=== PATIENT | female | born 1990 | race Caucasian/White ===

== ENCOUNTER 2023-09-23 10:33 | Observation (INO) | payer OTHER, SELFPAY ==
[2023-09-23] VITALS (12 sets, daily range): BP systolic 84–128; BP diastolic 47–67; PULSE 56–96; RESP 14–18; TEMP 36.1–36.9; O2SAT 97–99; BMI 20.5
--- NOTE | 2023-09-23 10:49 | CT_ITS ---
STUDY: CT PELVIS WITH CONTRAST REASON FOR EXAM: Female, 33 years old. Rectal pain, drainage RADIATION DOSAGE (If Supplied By Facility): CTDIvol = ( 25.12 ) mGy, DLP = ( 834.28 ) mGycm TECHNIQUE: Transaxial imaging of the pelvis was performed without oral contrast. IV 100mL Isovue-300 was administered intravenously. Individualized dose optimization techniques were used for this CT. COMPARISON: None. FINDINGS: There is a well-defined, thick-walled slightly enhancing fluid collection in the left perirectal region consistent with an abscess measuring 1.9 x 1.8 x 1.7 cm. There is associated induration of the perirectal fat but no suspicious adenopathy is noted. There is a second smaller abscess seen on sagittal image 78 and coronal recon image 61 measuring 1.0 x 0.5 x 0.5 cm. Normal urinary bladder. Normal-appearing uterus, no free fluid Normal visualized small intestine. Retained stool noted in the colon. There is no pelvic fluid. There is no pelvic lymphadenopathy or mass lesion. Normal visualized pelvic arteries. Normal abdominal wall. Normal osseous structures. CT/Pelvis WITH IV Contrast IMPRESSION: 2 separate perirectal abscesses noted, one is to the left and inferior measuring 1.9 x 1.8 x 1.7 cm seen best on axial image 57, coronal recon image 48, and sagittal image 82. The other is also to the left of the rectum but in a more superior position seen on coronal image 60 and sagittal image 79. There is associated induration of the perirectal fat but no suspicious adenopathy noted. Retained stool in the colon No free air or suspicious adenopathy Bony structures are normal Electronically Signed: Reddy Brar MD at 11:29 EDT ,
--- NOTE | 2023-09-23 10:51 | EDS_ITS ---
HPI History of Present Illness Chief Complaint: Other, Pain/Inj Detail of Chief Complaint: Rectal pain, constipation, chills, history of abscess Informant: patient and family Onset/Context/Timing Onset: - (Increased pain 2 days ago.) Context: Sudden Onset Timing: Continuous Quality: Pain Location: Rectum Current Severity: Mild Maximum Severity: Moderate Worsened by: Nothing specific Relieved by: Nothing Associated Symptoms Associated Symptoms: Chills, drainage Narrative Narrative: Patient is a 33-year-old woman. Her last normal menstrual cycle was 1.5 weeks ago. She reports she is not sexually active. She presents because of rectal pain that is gotten worse since Tuesday. She has history of perianal abscess that was drained by Dr. Escalante at [facility] over a year ago. She denies fever however she reports chills. She believes she has been constipated or feels constipated. She has had a change in the consistency of her stool not necessarily the caliber of her stool. There is no change in the color of her stool. She has not noted any blood or mucus. She has had drainage from apparent abscess that was drained over a year ago. She denies urologic symptoms. She denies gynecologic symptoms. Patient had an egg at 5:30 AM and 3 crackers at 9 AM. Prior similar symptoms: Yes Recent Illness/Hospitalization: No PFSH PFSH Medical History (Updated 09/23/23 @ 12:[address] Blane Rangel MD) Perianal abscess Allergy/AdvReac Type Severity Reaction Status Date / Time No Known Allergies Allergy Verified 09/23/23 10:33 Social History (Updated 09/23/23 @ 10:[address] Blane Rangel MD) household members: family Smoking Status: Never smoker substance use type: does not use ROS ROS ED Constitutional Constitutional ED: Reports chills; Denies fever(s), subjective or sweats Eyes Eyes: Denies blurry vision or change in vision ENT ENT ED: Denies rhinorrhea or sore throat Cardiovascular Cardiovascular: Denies chest pain or palpitations Respiratory/Chest Respiratory/Chest: Denies cough or dyspnea Gastrointestinal Gastrointestinal: Reports constipation and other Details: See HPI narrative ; Denies abdominal pain, diarrhea, melena, nausea or vomiting Genitourinary Genitourinary ED: Denies dysuria, hematuria or urinary frequency Musculoskeletal Musculoskeletal: Denies arthralgias, back pain, myalgias or neck pain Integumentary Reports abscess Hematologic/Lymphatic Hematologic/Lymphatic: Reports systems reviewed and no addt'l complaints, except as documented EXAM Physical Exam Const Vital Signs: 09/23/23 10:33 09/23/23 11:04 Temperature 96.9 F L Temperature Source Temporal Pulse Rate 84 Respiratory Rate 14 Respiratory Effort Normal Non-Labored Respiratory Pattern Normal Blood Pressure 128/67 H Blood Pressure Mean 87 Pulse Ox 98 Oxygen Delivery Method Room Air Positive well nourished and well developed Constitutional Narrative: Patient does not look in discomfort however she does not look well either. General Appearance ED: well developed; Negative for NAD or pallor HEENT HEENT Narrative: Head is atraumatic normocephalic. Ears normal. Nares patent. Eyes PERRL and EOMs intact bilaterally General Eye ED: Negative for pale conjunctiva or scleral icterus Neck no JVD Resp normal respiratory effort and clear to auscultation bilaterally Cardio regular rate, regular rhythm, S1 normal heart sound, S2 normal heart sound and no murmurs GI normal to inspection, nondistended, normoactive bowel sounds, non-tender, non- distended and no masses; Negative for hepatosplenomegaly GI Narrative: Patient has a area that is inflamed and appears to have drainage. There is also a incision noted. There is prominence of hemorrhoids. There is no evidence of fissures or blood. Inspection: Negative for abdominal distention Auscultation: normoactive bowel sounds Palpation: soft Extremity normal to inspection General Extremety ED: Negative for edema or tenderness General Extremity: Negative for edema Neuro oriented x3 and CN's II-XII intact bilaterally Sensorium / Orientation: alert Psych mental status grossly normal Skin no rashes or lesions noted, no wounds and skin turgor normal General Skin Exam: Negative for jaundice or pallor MDM MDM MDM Narrative Medical decision making narrative: With history of prior perianal abscess and drainage and continued drainage in light of rectal exam will obtain CT of the pelvis to assess for abscess/inflammation. She reports no history of inflammatory bowel disorder. She states she had a colonoscopy at outside facility and was told it was negative. Because she reports chills obtain CBC to assess white count differential. Will obtain serum test prior to CAT scan. History & Record Review Additional record(s) reviewed:: Prior outpatient record (Patient did have a colonoscopy February 09, [address] Gustavo Escalante. No biopsies were obtained. There is no concerning lesions noted. Culture of abscess revealed many white cells, rare gram-positive cocci and rare gram-positive rods. This was performed on December 27, 2022. Patient did have drain) and Prior labs Lab Data Attestation: I reviewed the patient's lab results. Lab results narrative: White count and differential are unremarkable. Patient does have mild anemia with an H&H 11.7 and 36.2 with normal indices. Labs: Laboratory Results - last 24 hr 09/23/23 10:56 WBC 7.5 RBC 4.19 L Hgb 11.7 L Hct 36.2 L MCV 86.4 MCH 27.9 MCHC 32.3 RDW Std Deviation 41.1 RDW Coeff of Keisha 13.1 Plt Count 336 MPV 10.2 Immature Gran % (Auto) 0.700 Neut % (Auto) 71.5 H Lymph % (Auto) 19.4 [place] % (Auto) 6.3 Eos % (Auto) 1.3 Baso % (Auto) 0.8 Absolute Neuts (auto) 5.3 Absolute Lymphs (auto) 1.45 Nucleated RBC % 0 Sodium 140 Potassium 3.4 L Chloride 107 Carbon Dioxide 28.0 Anion Gap 5 BUN 9 Creatinine 0.65 Estim Creat Clear Calc 121.48 Est GFR (MDRD) Af Amer 133 Est GFR (MDRD) Non-Af 110 BUN/Creatinine Ratio 13.8 Glucose 92 Calcium 8.8 Radiography Diagnostic Testing: Clinical Impression(s) from Imaging Studies Pelvis CT 09/23/23 10:49 IMPRESSION: 2 separate perirectal abscesses noted, one is to the left and inferior measuring 1.9 x 1.8 x 1.7 cm seen best on axial image 57, coronal recon image 48, and sagittal image 82. The other is also to the left of the rectum but in a more superior position seen on coronal image 60 and sagittal image 79. There is associated induration of the perirectal fat but no suspicious adenopathy noted. Retained stool in the colon No free air or suspicious adenopathy Bony structures are normal Electronically Signed: Reddy Brar MD at 11:29 EDT , There appears to be very anal/history of rectal abscess on CAT scan on the left side. Will await for formal read by radiologist prior to contacting surgeon on- call. [id number] Management Discussion w/another healthcare provider: Lan Support Specialist (Surgeon paged at [phone]. Since there is evidence of 2 abscesses with induration and no allergy to penicillin patient was treated with Zosyn.) Treatment and Re-Evaluation :: Plan is to OR. Patient to be admitted to Dr. Anderson service. Procedures Other Procedures Procedure(s): With nurse in room as seed potato arranger rectal exam was performed and anoscopy. Anoscopy reveals evidence of hemorrhoids with no evidence of active bleeding. The rectal mucosa appears normal. Stool is brown. On rectal exam patient had no increased discomfort. There is no area of fluctuance. There is what appears to be a fistula near the anus. There is no palpable mass to suggest a thrombosed hemorrhoid. Discharge Plan Triage Chief Complaint: Other, Pain/Inj ED Provider: Blane Rangel Dx/Rx/DC Orders Clinical Impression: Perianal abscess Primary Care Provider: Burke Abdalla Referrals: Burke Abdalla DO [Primary Care Provider] - Print Language: Guamanian Disposition Disposition: Acute Care Hospital [facility]
[2023-09-23 11:03] LABS: Absolute Lymphocyte Count 1.45 X10^3/uL (0.83-4.51); Absolute Neutrophil Count 5.3 X10^3/uL (2.0-7.7); Basophil# 0.06 X10^3/uL; Basophil% 0.8 % (0-1); Eosinophils% 1.3 % (0-5); Hematocrit 36.2 % (37-47); Hemoglobin 11.7 g/dL (12.0-15.0); Lymphocyte # 1.45 X10^3/ul (0.83-4.51); Lymphocyte % 19.4 % (19-41); Mean Corp Hgb Conc 32.3 g/dL (32-36); Mean Corpuscular Hgb 27.9 pg (27.0-32.0); Mean Corpuscular Volume 86.4 fL (81-99); Mean Platelet Vol. 10.2 fl (6.2-12.0); Monocyte# 0.47 X10^3/uL; Monocyte% 6.3 % (0-10); NRBC Flagged by Analyzer 0 % (0-5); Neutrophil # 5.33 X10^3/uL (2.7-7.7); Neutrophil % 71.5 % (47-70); Platelet Count 336 K/mm3 (150-450); RBC Distribution Width CV 13.1 % (11.6-14.6); RBC Distribution Width SD 41.1 fl (35.1-43.9); Red Blood Count 4.19 M/mm3 (4.2-5.4); White Blood Count 7.5 K/mm3 (4.4-11.0)
[2023-09-23 11:15] LABS: Anion Gap 5 (5-15); BUN 9 mg/dL (7-18); BUN/Creat Ratio 13.8 RATIO (10-20); Calcium,Total 8.8 mg/dL (8.5-10.1); Chloride 107 mmol/L (98-107); Creatinine, Serum 0.65 mg/dL (0.55-1.02); EST Glomerular Filtration Rate 110 mL/min (>60); Est Glom Filt Rate - Afr Amer 133 mL/min (>60); Estimated Creatinine Clearance 121.48 ml/min; Glucose 92 mg/dL (74-106); Potassium 3.4 mmol/L (3.5-5.1); Sodium Level 140 mmol/L (136-145)
[2023-09-23] MEDS: Piperacil/Tazobactam 4.5 GM in 0.9% Normal Saline (100mL MB+) 100 ML IV (11:49)
--- NOTE | 2023-09-23 12:08 | PCM.HP.STD ---
HPI - General General Date of Admission: 09/23/23 HPI Narrative CHANNING CASTREJON, is a 33 F who presents due to rectal pain. Patient states she has a history of perirectal abscesses. Patient had on 2020 which drained on its own patient did have his colonoscopy at that time by Dr. Escalante in [place] normal per patient. Patient states in December 2022 she did have surgery by Dr. Escalante for a perirectal abscess at that time. Patient states she has had pain off and on for 3 years. It did get worse today. Patient did states she had some purulent drainage from her anus as well as some from the right side which was a previous site of I&D. CT abdomen pelvis did show 2 cm left-sided perirectal abscess along with a small right-sided more superficial 1. Patient had normal white blood cell count with a slight shift on admission to the ER. [facility] Medical History (Updated 09/23/23 @ 12:[address] Blane Rangel MD) Perianal abscess Home Medications ?Medication ?Instructions ?Recorded ?Last Taken ?Type NK 09/23/23 Unknown History Allergy/AdvReac Type Severity Reaction Status Date / Time No Known Allergies Allergy Verified 09/23/23 10:33 Social History (Updated 09/23/23 @ 10:[address] Blane Rangel MD) household members: family Smoking Status: Never smoker substance use type: does not use ROS Constitutional Constitutional: Reports chills Eyes Eyes: Denies change in vision ENT HEENT: Denies dysphagia Cardiovascular Cardiovascular: Denies chest pain Respiratory/Chest Respiratory/Chest: Denies cough Gastrointestinal Gastrointestinal: Denies abdominal pain, constipation, nausea or vomiting Genitourinary Genitourinary: Denies dysuria Musculoskeletal Musculoskeletal: Denies joint swelling Integumentary Integumentary: Denies jaundice Neurologic Neurologic: Denies dizziness Psychiatric Psychiatric: Denies anxiety or depression Endocrine Endocrinology: Denies palpitations Hematologic/Lymphatic Hematologic/Lymphatic: Denies easy bleeding Vital Signs Vital Signs Vital Signs: 09/23/23 10:33 09/23/23 11:04 Temperature 96.9 F L Temperature Source Temporal Pulse Rate 84 Respiratory Rate 14 Respiratory Effort Normal Non-Labored Respiratory Pattern Normal Blood Pressure 128/67 H Blood Pressure Mean 87 Pulse Ox 98 Oxygen Delivery Method Room Air Weight Weight: 139 lb 1.787 oz Body Mass Index (BMI) 20.5 Physical Exam Const alert, oriented x3 and no apparent distress HEENT normocephalic and head/scalp atraumatic Resp normal respiratory effort Cardio regular rate GI soft to palpation and non-tender; Negative for non-distended GI Narrative: rectal exam/inspection previous I&D site slightly swollen on the right about 7:00. No obvious erythema on the left, no digital rectal exam was done will do under anesthesia. Palpation: Negative for guarding Extremity no clubbing, cyanosis or edema Skin no rashes or lesions noted Neuro CN's II-XII intact bilaterally Psych mental status grossly normal Results Lab / Micro Data 09/23/23 10:56 09/23/23 10:56 Labs: Laboratory Results - last 24 hr 09/23/23 10:56: WBC 7.5, RBC 4.19 L, Hgb 11.7 L, Hct 36.2 L, MCV 86.4, MCH 27.9, MCHC 32.3, RDW Std Deviation 41.1, RDW Coeff of Keisha 13.1, Plt Count 336, MPV 10.2, Immature Gran % (Auto) 0.700, Neut % (Auto) 71.5 H, Lymph % (Auto) 19.4, [place] % (Auto) 6.3, Eos % (Auto) 1.3, Baso % (Auto) 0.8, Absolute Neuts (auto) 5.3, Absolute Lymphs (auto) 1.45, Nucleated RBC % 0, Sodium 140, Potassium 3.4 L, Chloride 107, Carbon Dioxide 28.0, Anion Gap 5, BUN 9, Creatinine 0.65, Estim Creat Clear Calc 121.48, Est GFR (MDRD) Af Amer 133, Est GFR (MDRD) Non-Af 110, BUN/Creatinine Ratio 13.8, Glucose 92, Calcium 8.8 Imaging Radiology Impression Pelvis CT 09/23/23 10:49 IMPRESSION: 2 separate perirectal abscesses noted, one is to the left and inferior measuring 1.9 x 1.8 x 1.7 cm seen best on axial image 57, coronal recon image 48, and sagittal image 82. The other is also to the left of the rectum but in a more superior position seen on coronal image 60 and sagittal image 79. There is associated induration of the perirectal fat but no suspicious adenopathy noted. Retained stool in the colon No free air or suspicious adenopathy Bony structures are normal Electronically Signed: Reddy Brar MD at 11:29 EDT , Assessment & Plan Assessment/Plan (1) Perianal abscess: PLAN: Plan Discussed with patient as well as her mom plan for examined under anesthesia and I&D of perirectal abscesses x 2. Including risk of bleeding, infection, need for further surgery, future abscesses. Patient and her mom had no further question this time. And were agreeable to proceed. Bree Anderson M.D. Pager: [phone] [facility] [address] [place] [address], [address] [place] [address] Office: [phone] Charges/Coding Visit Charges Inpatient E&M: 88087 Init Hosp L3
[2023-09-23] MEDS: 0.9% Normal Saline (1000mL) 1,000 ML 120 ML IV ×2 (14:11→21:24)
[2023-09-23 14:41] LABS: Internal QC Validated? YES +Cl - CLEAR BKGD; Pregnancy, Urine Negative Negative; Record Kit Lot#,Urine Preg HCG0000772476
--- NOTE | 2023-09-23 14:44 | PRE.ANES_ITS ---
ASA Classification* ASA Classification ASA Classification: 1 Assessment & Plan Anesthesia* Anesthesia Assessment Anesthesia Assessment: Discussed sedation and/or anesthesia options, risks, benefits, and alternatives with patient/parents/legal guardian/POA. Questions invited. The patient/parents/legal guardian/POA seems to understand and agrees to proceed with anesthesia plan. Reviewed the physical assessment, medical history, allergy history and patient home medications list prior to surgery/procedure/anesthetic and documented any changes. Performed airway and anesthesia risk assessments. Anesthesia Type Anesthesia Type: MAC History Source History Obtained from:: Patient and Chart Anesthesia Focused Assessment* Temperature: 98.1 F Pulse Rate: 65 Blood Pressure: 105/64 Respiratory Rate: 14 Pulse Ox: 99 Oxygen Delivery Method: Room Air Airway Assessment Mouth opens: >3 cm Mallampati Score: III Teeth Condition: Missing (Patient is missing several molars. The rest of the teeth are tight.) Neck Range of motion (ROM): Full ROM Focused Labs Anesthesia Preop lab: CBC WBC 7.5 K/mm3 (4.4-11.0) 09/23/23 10:56 RBC 4.19 M/mm3 (4.2-5.4) L 09/23/23 10:56 Hgb 11.7 g/dL (12.0-15.0) L 09/23/23 10:56 Hct 36.2 % (37-47) L 09/23/23 10:56 Plt Count 336 K/mm3 (150-450) 09/23/23 10:56 CHEMISTRY Potassium 3.4 mmol/L (3.5-5.1) L 09/23/23 10:56 Sodium 140 mmol/L (136-145) 09/23/23 10:56 BUN 9 mg/dL (7-18) 09/23/23 10:56 Creatinine 0.65 mg/dL (0.55-1.02) 09/23/23 10:56 Glucose 92 mg/dL (74-106) 09/23/23 10:56 COAG Urine Test Negative Negative 09/23/23 14:27 Pre-Assessment Diagnosis/Proposed Procedure Planned Operative Procedure(s): Exam under anesthesia. 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 When Was Last Pacemaker Check QUESTION #4 FULL TEXT: You/Your Family Experience fever (hyperthermia) with Anesthesia Last Oral Intake Last Oral intake: Last Oral Intake NPO since 09:30 09/23/23 13:35 Meds taken in AM with sips of No 09/23/23 13:35 water? 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 Female HX of Motion Sickness HX of N/V After Surgery Non-Smoker Duration of Surgery greater than 60 minutes Number of Risk Factors PONV Score Height & Weight Height & Weight: Anesthesia: Height & Weight Height 5 ft 9 in 09/23/23 13:35 Weight: 63.1 kg 09/23/23 13:35 Body Mass Index (BMI) 20.5 09/23/23 13:35 Respiratory Assessment Respiratory Assessment - matzo forming machine operator: Respiratory Tract Infection Hx - matzo forming machine operator Hx Respiratory Tract Infection No 09/23/23 13:35 STOP Sleep Apnea STOP Sleep Apnea - matzo forming machine operator: STOP Sleep Apnea - matzo forming machine operator Hx Hypertension No 09/23/23 13:35 Hx Sleep Apnea No 09/23/23 13:35 CPAP BIPAP Do you snore loudly (louder No 09/23/23 13:35 than talking or can be heard Do you often feel tired/ No 09/23/23 13:35 fatigued/ sleepy during daytime? Has anyone observed you stop No 09/23/23 13:35 breathing during sleep? STOP Results Negative 09/23/23 13:35 QUESTION #5 FULL TEXT : Do you snore loudly (louder than talking or can be heard through closed doors)? 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 Specify any problems Hx of Preganancy in last 3 No 09/23/23 13:35 Months Nurse Filling Out Transfusion KBORNSTIN 09/23/23 13:35 & Questions: Date: 09/23/23 09/23/23 13:35 Time: 13:49 09/23/23 13:35 Patient unable to answer at this time (ie. confused, unrespo /Reproduction History /Reproductive History - matzo forming machine operator: /Reproductive Hx- matzo forming machine operator Hx Now No 09/23/23 13:35 Gestational Age (in weeks): EDC: Hx Hx Para Hx Section SAB No 09/23/23 13:35 Active Medications Active Medications: Current Medications Generic Name Dose Route Start Last Admin Trade Name Freq PRN Reason Stop Dose Admin Acetaminophen 650 mg 09/23/23 13:33 Acetaminophen 325 Mg Tablet PO Q6H PRN PRN Pain Score 1-10 Sodium Chloride 1,000 mls @ 120 mls/hr 09/23/23 13:33 09/23/23 14:11 IV 120 mls/hr .[id number] STEVE Administration Piperacillin Sod/Tazobactam 50 mls @ 12.5 mls/hr 09/23/23 22:00 Sod 3.375 gm/ Sodium Chloride IV Q8 STEVE Sodium Chloride 250 mls @ 15 mls/hr 09/23/23 13:39 IV .[id number] PRN Additional IVPB Infusion Sodium Chloride 250 mls @ 15 mls/hr 09/23/23 13:39 IV .[id number] PRN Saline Flush Morphine Sulfate 2 - 4 mg 09/23/23 13:33 Morphine 2 Mg/Ml Syringe IV Q2H PRN PRN Pain Score 1-10 Morphine Sulfate 2 - 4 mg 09/23/23 13:41 Morphine 4 Mg/Ml Syringe IV Q2H PRN PRN Pain Score 1-10 Oxycodone HCl 5 - 10 mg 09/23/23 13:33 Oxycodone 5 Mg Tablet PO Q4H PRN PRN Pain Score 1-10 Sodium Chloride 10 - 40 ml 09/23/23 13:39 0.9% Saline Lock 10 Ml Syringe IV UD PRN SALINE FLUSH PFSH Medical History Perianal abscess Home Medications ?Medication ?Instructions ?Recorded ?Last Taken ?Type NK 09/23/23 Unknown History Allergy/AdvReac Type Severity Reaction Status Date / Time No Known Allergies Allergy Verified 09/23/23 10:33 Surgical History (Updated 09/23/23 @ 14:[address] Tanmay Walker MD) History of incision and drainage Social History household members: family Smoking Status: Never smoker substance use type: does not use Review of Systems (Anesthesia) ROS Narrative System reviewed and no additional complaints, except as documented.
[2023-09-23] MEDS: Bupivacaine Mpf 0.5% 30 ML VIAL (16:00)
--- NOTE | 2023-09-23 16:16 | PCM.OPRPT ---
Report of Operation Date of Procedure: 09/23/23 Pre-Operative Diagnosis: Perirectal abscess Post-Operative Diagnosis: Same Surgery/Procedure Performed:: Exam under anesthesia incision and drainage of perirectal abscess Surgeon: Bree Anderson Type of Anesthesia: Local MAC Anesthesiologist: Tanmay Walker Special Medications: Zosyn 4.5 g IV given in the ER for perirectal abscess Specimen's removed: Culture Estimated Blood Loss (mL): < 10 cc Description of Procedure: Indications 33-year-old female prior history of incision and drainage of the right perirectal area about 4:00 in December 2022 with purulent drainage. Patient CT abdomen pelvis showed areas on the the left lower 1 was larger about 2 cm upper 1 was quite a bit smaller. White blood count normal with slight left shift. Patient was brought to operating placed in left lateral decubitus position with appropriate padding. MAC anesthesia was induced. Patient's perirectal area was prepped with Betadine. Local anesthesia of bupivacaine was used surrounding the previous I&D site. Patient had a nonhealing wound at 4:00 area of her previous I&D site. When doing the digital rectal exam unable to feel any obvious fluctuance however there was drainage of purulent material from this previous I&D site when pressing on the left anterior site where the CT had shown an abscess. Inspection with a Hill-Conley retractor does not show any obvious drainage inside the rectum or able to identify other potential fluid pockets with the retractor or palpation. Cultures were taken of the purulent drainage. Patient's small nonhealing wound was enlarged and cautery was used to control some bleeding. This cavity was irrigated with saline. And 1/2 inch iodoform packing was placed to allow drainage. 4 x 4's and ABD and mesh panties were placed. Patient tolerated procedure well was taken to the postanesthesia care in stable condition. Complications none
--- NOTE | 2023-09-23 16:18 | PCM.POST.ANE ---
Anesthesia: Postop Eval I Current Vital Signs Temperature: 97.8 F Pulse Rate: 91 Blood Pressure: 84/48 Respiratory Rate: 16 Pulse Ox: 98 Oxygen Delivery Method: Room Air Assessment Airway patent: Yes Spontaneous unlabored respirations: Yes Mental status: Awake and Calm nausea: No Vomiting: No Anesthesia Complication: No Fluid Hydration Crystalloid volume administer (ml): 700 Total IV fluid infused: 700 Progress Note Anesthesia document: Postop Eval 1 completed: Yes
[2023-09-23] MEDS: Piperacil/Tazobactam 3.375 GM in 0.9% Normal Saline (50mL MB+) 50 ML IV (21:21)
[2023-09-24 05:40] VITALS: BP 102/58; PULSE 69; RESP 16; TEMP 37; O2SAT 97
[2023-09-24] MEDS: 0.9% Normal Saline (1000mL) 1,000 ML 120 ML IV (05:41)
[2023-09-24] MEDS: Piperacil/Tazobactam 3.375 GM in 0.9% Normal Saline (50mL MB+) 50 ML IV (05:42)
[2023-09-24 07:07] LABS: Absolute Lymphocyte Count 1.33 X10^3/uL (0.83-4.51); Absolute Neutrophil Count 6.8 X10^3/uL (2.0-7.7); Basophil# 0.05 X10^3/uL; Basophil% 0.6 % (0-1); Eosinophil# 0.11 X10^3/uL; Eosinophils% 1.2 % (0-5); Hematocrit 35.3 % (37-47); Hemoglobin 11.1 g/dL (12.0-15.0); Lymphocyte # 1.33 X10^3/ul (0.83-4.51); Mean Corp Hgb Conc 31.4 g/dL (32-36); Mean Corpuscular Hgb 27.7 pg (27.0-32.0); Mean Platelet Vol. 10.4 fl (6.2-12.0); Monocyte# 0.58 X10^3/uL; Monocyte% 6.5 % (0-10); NRBC Flagged by Analyzer 0 % (0-5); Neutrophil # 6.77 X10^3/uL (2.7-7.7); Neutrophil % 76.2 % (47-70); Platelet Count 304 K/mm3 (150-450); RBC Distribution Width CV 13.2 % (11.6-14.6); Red Blood Count 4.01 M/mm3 (4.2-5.4); White Blood Count 8.9 K/mm3 (4.4-11.0)
[2023-09-24] MEDS: Acetaminophen 325 MG Tablet 650 MG PO (07:24)
--- NOTE | 2023-09-24 09:42 | PCM.PN.SRG ---
Subjective Subjective Patient's pain improved after surgery Objective Data Objective Data Vital Signs: Vital Signs Temp Pulse Resp BP Pulse Ox O2 Del Method 98.6 F 69 16 102/58 L 97 Room Air 09/24/23 05:40 09/24/23 05:40 09/24/23 05:40 09/24/23 05:40 09/24/23 05:40 09/24/23 05:40 Oxygen Delivery Method Room Air Weight: 139 lb 1.787 oz Body Mass Index (BMI) 20.5 Intake & Output: Intake and Output for Last 24 Hours 09/22/23 09/23/23 09/24/23 23:59 23:59 23:59 Intake Total 1366 / 1366 1244 / 1244 Balance 1366 / 1366 1244 / 1244 Lab / Micro Data 09/24/23 06:46 09/23/23 10:56 Labs: Laboratory Results - last 24 hr 09/23/23 10:56: WBC 7.5, RBC 4.19 L, Hgb 11.7 L, Hct 36.2 L, MCV 86.4, MCH 27.9, MCHC 32.3, RDW Std Deviation 41.1, RDW Coeff of Keisha 13.1, Plt Count 336, MPV 10.2, Immature Gran % (Auto) 0.700, Neut % (Auto) 71.5 H, Lymph % (Auto) 19.4, Grimes % (Auto) 6.3, Eos % (Auto) 1.3, Baso % (Auto) 0.8, Absolute Neuts (auto) 5.3, Absolute Lymphs (auto) 1.45, Nucleated RBC % 0, Sodium 140, Potassium 3.4 L, Chloride 107, Carbon Dioxide 28.0, Anion Gap 5, BUN 9, Creatinine 0.65, Estim Creat Clear Calc 121.48, Est GFR (MDRD) Af Amer 133, Est GFR (MDRD) Non-Af 110, BUN/Creatinine Ratio 13.8, Glucose 92, Calcium 8.8 09/23/23 14:27: Urine Test Negative 09/24/23 06:46: WBC 8.9, RBC 4.01 L, Hgb 11.1 L, Hct 35.3 L, MCV 88.0, MCH 27.7, MCHC 31.4 L, RDW Std Deviation 43.0, RDW Coeff of Keisah 13.2, Plt Count 304, MPV 10.4, Immature Gran % (Auto) 0.500, Neut % (Auto) 76.2 H, Lymph % (Auto) 15.0 L, Grimes % (Auto) 6.5, Eos % (Auto) 1.2, Baso % (Auto) 0.6, Absolute Neuts (auto) 6.8, Absolute Lymphs (auto) 1.33, Nucleated RBC % 0 Micro: Microbiology 09/23/23 15:50 Wound Abcess - Aerobic & Anaerobic Swabs Gram Stain - Final Radiography Diagnostic Testing: Radiology Impression Pelvis CT 09/23/23 10:49 IMPRESSION: 2 separate perirectal abscesses noted, one is to the left and inferior measuring 1.9 x 1.8 x 1.7 cm seen best on axial image 57, coronal recon image 48, and sagittal image 82. The other is also to the left of the rectum but in a more superior position seen on coronal image 60 and sagittal image 79. There is associated induration of the perirectal fat but no suspicious adenopathy noted. Retained stool in the colon No free air or suspicious adenopathy Bony structures are normal Electronically Signed: Reddy Brar MD at 11:29 EDT Reading Location ID and State: [facility] / [place] , Service support , Physical Exam Const oriented x3 and no apparent distress Resp normal respiratory effort Cardio regular rate GI soft to palpation GI Narrative: Right-sided perirectal I&D site with packing in place?packing removed and irrigated with saline and quarter inch packing replaced. Patient tolerated well. Assessment & Plan Assessment/Plan (1) Perianal abscess: (2) Perirectal abscess: PLAN: Plan Plan to DC home. Will have them likely pack for another 1 to 2 days if it still purulent on the dressing. Patient and her mom are agreeable with plan. Cultures Gram stains were negative cultures pending. Will send home on Augmentin p.o. twice daily x 7 days. Will have patient follow-up in the office in about 1 week-likely referral to colorectal for recurrent abscess possible horseshoe. Bree Anderson M.D. Pager: [phone] [facility] [address] [place] [address], [address] [place] [address] Office: [phone]
--- NOTE | 2023-09-24 09:43 | DCINST_ITS ---
Discharge Instructions Diet Discharge Diet: No restrictions Activity Discharge Activity: May Shower Dressing / Incision Call your doctor if your incision/area has: Increased Pain/ Swelling and Increased Redness Call your doctor if you observe: Fever of 101 or Higher Additional Dressing/Incision Instructions:: Repacked with quarter inch iodoform daily for 1 to 2 days if still purulent and also irrigated with 10 cc of saline at time of repacking Follow Up Care Please Follow Up With: Bree Anderson MD When: Call the office for a follow-up appointment in 1 week. [phone] Test Results: Test results from this visit will be discussed in further detail at your follow- up appointment, if applicable. Discharge Plan Admission Admit Date/Time: 09/23/23 12:05 Attending Provider: Bree Anderson Primary Care Provider: Burke Abdalla Discharge Orders/Prescriptions Prescriptions: New amoxicillin-pot clavulanate 875-125 mg tablet 1 tab PO Q12H Qty: 14 0RF Referrals / Follow Up: Burke Abdalla DO [Primary Care Provider] - Disposition Disposition (needs filled in before D/C Order can be placed): Home, Self Care
[2023-09-24 10:15] VITALS: PULSE 65; RESP 18; O2SAT 100
[2023-09-24 10:24] VITALS: BP 95/50; PULSE 65; RESP 18; TEMP 36.9; O2SAT 100
[2023-09-24 10:25] VITALS: BP 95/50; PULSE 65; RESP 18; TEMP 36.9; O2SAT 100
--- NOTE | 2023-09-24 11:37 | POSTOPAN2_ITS ---
Anesthesia Postop Eval I Sum Postop Eval Completion status Anesthesia document: Postop Eval 1 completed: Yes Anesthesia Postop Eval I Summary Anesthesia Postop Eval I Summary: Anesthesia Postop Eval I: Assessment Summary Airway patent Yes 09/23/23 16:19 DIRECTOR OF CAREER SERVICES.MDOT Spontaneous unlabored Yes 09/23/23 16:19 DIRECTOR OF CAREER SERVICES.MDOT respirations Mental status Awake,Calm 09/23/23 16:19 DIRECTOR OF CAREER SERVICES.MDOT nausea No 09/23/23 16:19 DIRECTOR OF CAREER SERVICES.MDOT Vomiting No 09/23/23 16:19 DIRECTOR OF CAREER SERVICES.MDOT Anesthesia Postop Eval I: Fluid Summary Crystalloid volume administer 700 09/23/23 16:19 DIRECTOR OF CAREER SERVICES.MDOT (ml) Colloids volume administered ( ml) Blood Product volume administered (ml) Total IV fluid infused 700 09/23/23 16:19 DIRECTOR OF CAREER SERVICES.MDOT Anesthesia Postop Eval I: Summary Notes Anesthesia Complication No 09/23/23 16:19 DIRECTOR OF CAREER SERVICES.MDOT Anesthesia Complication Comment: Post-operative progress note Anesthesia: Postop Eval II Evaluation Mental status: Awake and Calm Pain Level: 2 nausea: No Vomiting: No Complications Anesthesia Complication: No
--- NOTE | 2023-09-24 11:37 | PCM.POSTANE2 ---
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.MDOT Spontaneous unlabored Yes 09/23/23 16:19 [employer]ONG[employer] AND [employer] MACHINE [employer]ER.MDOT respirations Mental status Awake,Calm 09/23/23 16:19 [employer] AND [employer] M[employer]INE [employer]ER.MDOT nausea No 09/23/23 16:19 [employer]ONG[employer] AND [employer] MACHINE [employer]EDER.MDOT Vomiting No 09/23/23 16:19 [employer]ONG[employer] AND [employer] MACHINE FEEDER.MDOT Anesthesia Postop Eval I: Fluid Summary Crystalloid volume administer 700 09/23/23 16:19 [employer]ONG[employer] AND [employer] MACHINE FEEDER.MDOT (ml) Colloids volume administered ( ml) Blood Product volume administered (ml) Total IV fluid infused 700 09/23/23 16:19 [employer]ONG[employer] AND [employer] MACHINE FEEDER.MDOT Anesthesia Postop Eval I: Summary Notes Anesthesia Complication No 09/23/23 16:19 TONG[employer] AND [employer] MACHINE FEEDER.MDOT Anesthesia Complication Comment: Post-operative progress note Anesthesia: Postop Eval II Evaluation Mental status: Awake and Calm Pain Level: 2 nausea: No Vomiting: No Complications Anesthesia Complication: No
== END 2023-09-24 11:47 | disposition home or self-care (01) ==
LOC: ED 12:22 → SDC 12:25 → ED 13:31 → MS3 13:32 → ED 14:27 → SDC 14:27 → ACINP 14:28 → SDC 14:28 → MS3 14:28
PROVIDERS: Anesthesiology; Admitting Provider Surgery; Emergency Provider Emergency Medicine; PCP Family Medicine; Visit Provider Surgery
PROC: (CPT 46040; principal; 2023-09-23 14:45)
DX: K61.1 Rectal abscess (principal); D64.9 Anemia, unspecified; K64.9 Unspecified hemorrhoids
CPT/HCPCS: 46040; 36415; 72193; 80048; 81025; 85025; 87070; 87075; 87077; 87186; 87205; 94668; 96361; 96365; 96366; 99221; 99283; J7030; J7050; Q9967; A4216; G0378; J2405